=== PATIENT | male | born 1965 | race Caucasian/White ===

== ENCOUNTER 2017-04-08 09:58 | Emergency (ER) | payer BC ==
[2017-04-08 10:31] VITALS: BP 139/84
--- NOTE | 2017-04-08 10:32 | UC ---
Skin Complaint HPI - HPI Summary HPI Summary: Patient has red itchy skin behind his knees wears knee pads daily for work he also has scaly flaking patches around hair line and both upper eyelids, also found behind both ears. - History of Current Complaint Chief Complaint: UCEye Time Seen by Provider: 04/08/17 10:09 Stated Complaint: EYE COMPLAINT Hx Obtained From: Patient Onset/Duration: Sudden Onset, Lasting Weeks Skin Exposure Onset/Duration: Weeks Ago Timing: Constant Onset Severity: Mild Current Severity: None Location: Face, Ear (Right), Ear (Left) Character: Redness Aggravating: Nothing Alleviating: Nothing - Allergy/Home Medications Allergies/Adverse Reactions: Allergies Allergy/AdvReac Type Severity Reaction Status Date / Time No Known Allergies Allergy Verified 04/08/17 10:04 Home Medications: Home Medications LoraTADine TAB(NF) [Claritin 10 MG TAB(NF)] 1 tab DAILY 04/08/17 [History Confirmed 04/08/17] Review of Systems Constitutional: Negative Skin: Rash Eyes: Negative ENT: Negative Respiratory: Negative Cardiovascular: Negative Gastrointestinal: Negative Genitourinary: Negative Motor: Negative Neurovascular: Negative Musculoskeletal: Negative Neurological: Negative Psychological: Negative All Other Systems Reviewed And Are Negative: Yes PMH/Surg Hx/FS Hx/Imm Hx Previously Healthy: Yes - Surgical History Surgical History: Yes Surgery Procedure, Year, and Place: appy, L knee - Family History Known Family History: Positive: None Negative: Cardiac Disease, Hypertension - Social History Alcohol Use: Weekly Substance Use Type: None Smoking Status (MU): Heavy Every Day Tobacco Smoker Type: Cigarettes Amount Used/How Often: 1/2 - 1 ppd Length of Time of Smoking/Using Tobacco: 30 + yrs Have You Smoked in the Last Year: Yes Household Exposure Type: Cigarettes - Immunization History Most Recent Influenza Vaccination: NONE Most Recent Tetanus Shot: Unknown Most Recent Pneumonia Vaccination: N/A Physical Exam Triage Information Reviewed: Yes Appearance: Well-Appearing, Well-Nourished, Pain Distress Vital Signs: Initial Vital Signs Temp 98.1 F 04/08/17 10:05 Pulse 65 04/08/17 10:05 Resp 16 04/08/17 10:05 BP 139/84 04/08/17 10:05 Pulse Ox 98 04/08/17 10:05 Vital Signs Reviewed: Yes Eye Exam: Normal Eyes: Positive: Conjunctiva Clear ENT Exam: Normal ENT: Positive: Hearing grossly normal, Pharynx normal, TMs normal Dental Exam: Normal Neck exam: Normal Neck: Positive: Supple, Nontender, No Lymphadenopathy Respiratory Exam: Normal Respiratory: Positive: Chest non-tender, Lungs clear, Normal breath sounds Cardiovascular Exam: Normal Cardiovascular: Positive: RRR, No Murmur, Pulses Normal Abdominal Exam: Normal Abdomen Description: Positive: Nontender, No Organomegaly, Soft Bowel Sounds: Positive: Present Musculoskeletal Exam: Normal Musculoskeletal: Positive: Strength Intact, ROM Intact Neurological Exam: Normal Neurological: Positive: Alert, Muscle Tone Normal Psychological Exam: Normal Skin: Positive: rashes - white raised flaks of skin with erythemic base over both eyelids, hairline and behind both ears. He also has red fungal patches behind both knees Course/Dx - Course Course Of Treatment: hx obtained, exam performed, meds reviewed, treated skin rashes referral to derm as needed. - Differential Diagnoses - Skin Complaint Differential Diagnoses: Cellulitis, Contact Dermatitis - Diagnoses Provider Diagnoses: seborratic dermatitis Discharge - Discharge Plan Condition: Stable Disposition: HOME Prescriptions: Ketoconazole 2 % CREAM (NF) [Nizoral 2% CREAM (NF)] 1 applic TOPICAL BID #1 tube Patient Education Materials: Dermatitis (ED), Tinea Corporis (ED) Referrals: No Primary Care Phys,NOPCP [Primary Care Provider] - Kierra Sol [Medical Doctor] - Additional Instructions: 1. Use the cream behind the kness twice a day for 2-4 weeks until clear. 2. Use an over the counter ketonizole shampoo on scalp and behind ears, You can use it on eyes like a face wash, do not get it in your eyes. 3. I have given a referral to Dermatology if you need it in the future.
== END 2017-04-08 10:40 | disposition home or self-care (01) ==
LOC: UCCORT 09:58
DX: L21.9 Seborrheic dermatitis, unspecified (principal); F17.210 Nicotine dependence, cigarettes, uncomplicated
CPT/HCPCS: 99212; G0463

== ENCOUNTER 2018-01-25 12:00 | Emergency (ER) | payer BC ==
[2018-01-25 12:43] VITALS: BP 128/80
--- NOTE | 2018-01-25 13:42 | UC ---
Throat Pain/Nasal Jose HPI - HPI Summary HPI Summary: Pt Pt c/o gradual onset of nasal congestion and sinus pressure and pain X 10 days. - History of Current Complaint Chief Complaint: UCRespiratory Stated Complaint: SINUSES Time Seen by Provider: 01/25/18 13:12 Hx Obtained From: Patient Onset/Duration: Gradual Onset, Lasting Days, Still Present Severity: Moderate Pain Intensity: 6 Pain Scale Used: 0-10 Numeric Cough: None Associated Signs & Symptoms: Positive: Sinus Discomfort, Nasal Discharge Related History: Seasonal Allergies - Epiglottits Risk Factors Epiglottis Risk Factors: Negative - Allergies/Home Medications Allergies/Adverse Reactions: Allergies Allergy/AdvReac Type Severity Reaction Status Date / Time No Known Allergies Allergy Verified 01/25/18 12:41 Home Medications: Home Medications Fluticasone NASAL SPRAY 50MCG* [Flonase NASAL SPRAY 50MCG*] 2 spray BOTH NARES DAILY 01/25/18 [History Confirmed 01/25/18] PMH/Surg Hx/FS Hx/Imm Hx Previously Healthy: Yes - Surgical History Surgical History: Yes Surgery Procedure, Year, and Place: appy, L knee - Family History Known Family History: Positive: None Negative: Cardiac Disease, Hypertension - Social History Occupation: Employed Full-time Lives: With Family Alcohol Use: Weekly Substance Use Type: None Smoking Status (MU): Former Smoker Type: Cigarettes Amount Used/How Often: 1/2 - 1 ppd Length of Time of Smoking/Using Tobacco: 30 + yrs Have You Smoked in the Last Year: Yes Household Exposure Type: Cigarettes - Immunization History Most Recent Influenza Vaccination: NONE Most Recent Tetanus Shot: Unknown Most Recent Pneumonia Vaccination: N/A Review of Systems Constitutional: Fever, Chills, Fatigue Skin: Negative Eyes: Negative ENT: Sinus Congestion, Sinus Pain/Tenderness Respiratory: Negative Cardiovascular: Negative Gastrointestinal: Negative Genitourinary: Negative Motor: Negative Neurovascular: Negative Musculoskeletal: Negative Neurological: Headache Psychological: Negative Is Patient Immunocompromised?: No All Other Systems Reviewed And Are Negative: Yes Physical Exam Triage Information Reviewed: Yes Appearance: Ill-Appearing Vital Signs: Initial Vital Signs Temp 98.7 F 01/25/18 12:38 Pulse 67 01/25/18 12:38 Resp 16 01/25/18 12:38 BP 128/80 01/25/18 12:38 Pulse Ox 99 01/25/18 12:38 Vital Signs Reviewed: Yes Eye Exam: Normal ENT Exam: Other ENT: Positive: Nasal congestion, TM bulging, Sinus tenderness Dental Exam: Normal Neck exam: Normal Respiratory Exam: Normal Cardiovascular Exam: Normal Abdominal Exam: Normal Musculoskeletal Exam: Normal Neurological Exam: Normal Psychological Exam: Normal Skin Exam: Other - dry skin on bialteral ears outer pinna Throat Pain/Nasal Course/Dx - Differential Dx/Diagnosis Differential Diagnosis/HQI/PQRI: Sinusitis, URI Provider Diagnoses: rhinosinusitis Discharge - Sign-Out/Discharge Documenting (check all that apply): Discharge - Discharge Plan Condition: Stable Disposition: HOME Prescriptions: Amoxicillin PO (*) [Amoxicillin 875 MG (*)] 875 mg PO Q12H #20 tab Cetirizine HCl/Pseudoephedrine [Zyrtec-D Tablet] 1 each PO DAILY #10 tab Patient Education Materials: Rhinosinusitis (ED) Referrals: Gee Samano DO [Doctor of Osteopathy] - No Primary Care Phys,NOPCP [Primary Care Provider] - - Billing Disposition and Condition Condition: STABLE Disposition: HOME
== END 2018-01-25 13:38 | disposition home or self-care (01) ==
LOC: UCCORT 12:00
DX: J32.9 Chronic sinusitis, unspecified (principal); Z87.891 Personal history of nicotine dependence
CPT/HCPCS: 99212; G0463

== ENCOUNTER 2018-02-12 11:51 | Emergency (ER) | payer BC ==
[2018-02-12 12:13] VITALS: BP 142/95
--- NOTE | 2018-02-12 12:21 | UC ---
Throat Pain/Nasal Jose HPI - HPI Summary HPI Summary: Pt c/o gradual onset nasal congestion, sinus pressure and pain. Also, has c/o recurrent rash on right antecubital space and posterior right ear. - History of Current Complaint Chief Complaint: UCGeneralIllness Stated Complaint: SINUS, SORE THROAT Time Seen by Provider: 02/12/18 12:12 Hx Obtained From: Patient Onset/Duration: Gradual Onset, Lasting Weeks, Still Present Severity: Mild Pain Intensity: 4 Associated Signs & Symptoms: Positive: Sinus Discomfort - Epiglottits Risk Factors Epiglottis Risk Factors: Negative - Allergies/Home Medications Allergies/Adverse Reactions: Allergies Allergy/AdvReac Type Severity Reaction Status Date / Time No Known Allergies Allergy Verified 02/12/18 12:05 PMH/Surg Hx/FS Hx/Imm Hx Previously Healthy: Yes - Surgical History Surgical History: Yes Surgery Procedure, Year, and Place: appy, L knee - Family History Known Family History: Positive: None Negative: Cardiac Disease, Hypertension - Social History Occupation: Employed Full-time Lives: With Family Alcohol Use: Weekly Substance Use Type: None Smoking Status (MU): Former Smoker Type: Cigarettes Amount Used/How Often: 1/2 - 1 ppd Length of Time of Smoking/Using Tobacco: 30 + yrs Have You Smoked in the Last Year: Yes Household Exposure Type: Cigarettes - Immunization History Most Recent Influenza Vaccination: NONE Most Recent Tetanus Shot: Unknown Most Recent Pneumonia Vaccination: N/A Review of Systems Constitutional: Fever - subjective Skin: Rash Eyes: Negative ENT: Sinus Congestion, Sinus Pain/Tenderness Respiratory: Negative Cardiovascular: Negative Gastrointestinal: Negative Genitourinary: Negative Motor: Negative Neurovascular: Negative Musculoskeletal: Negative Neurological: Negative Psychological: Negative Is Patient Immunocompromised?: No All Other Systems Reviewed And Are Negative: Yes Physical Exam Triage Information Reviewed: Yes Appearance: Well-Appearing Vital Signs: Initial Vital Signs Temp 98.9 F 02/12/18 12:07 Pulse 80 02/12/18 12:07 Resp 18 02/12/18 12:07 BP 142/95 02/12/18 12:07 Pulse Ox 95 02/12/18 12:07 Vital Signs Reviewed: Yes Eye Exam: Normal ENT Exam: Other ENT: Positive: Nasal congestion, Sinus tenderness Dental Exam: Normal Neck exam: Normal Respiratory Exam: Normal Cardiovascular Exam: Normal Abdominal Exam: Normal Musculoskeletal Exam: Normal Musculoskeletal: Positive: No Edema Psychological Exam: Normal Skin: Positive: rashes - right antecubital space, erythematous, confluent, slightly raised with silver scale Throat Pain/Nasal Course/Dx - Differential Dx/Diagnosis Differential Diagnosis/HQI/PQRI: Sinusitis, Other - allergic rhinitis, psoriasis Provider Diagnoses: sinusitis. psoriasis. tinea Discharge - Sign-Out/Discharge Documenting (check all that apply): Discharge - Discharge Plan Condition: Stable Disposition: HOME Prescriptions: Azithromycin TAB* [Zithromax TAB (Z-REYNOLD) 250 mg #6 tabs] 2 tab PO .TODAY, THEN 1 DAILY #1 reynold Clotrimazole/Betamethasone* [Lotrisone Cream*] 1 applic TOPICAL DAILY #1 tube Fexofenadine/Pseudoephedrine [Oumou-D 24 Hour Tablet] 1 each PO DAILY #10 tab Patient Education Materials: Sinusitis (ED), Skin Yeast Infection (ED) Referrals: [facility] [Outside] - As Soon As Possible Kierra Sol [Medical Doctor] - As Soon As Possible No Primary Care Phys,NOPCP [Primary Care Provider] - Additional Instructions: Please establish care with a PCP as soon as possible. It is important to maintain continuity of care and establish care home care management. We have provided a referral to a freelance photographer for you to follow up with as soon as possible regarding your skin complaint. - Billing Disposition and Condition Condition: STABLE Disposition: HOME
== END 2018-02-12 12:44 | disposition home or self-care (01) ==
LOC: UCCORT 11:51
DX: J32.9 Chronic sinusitis, unspecified (principal); L40.9 Psoriasis, unspecified; B35.9 Dermatophytosis, unspecified; Z87.891 Personal history of nicotine dependence; Z77.22 Contact with and (suspected) exposure to environmental tobacco smoke (acute) (chronic)
CPT/HCPCS: 99212; G0463